=== PATIENT | male | born 1960 | race Native Hawaiian/Other Pacific Islander ===

== ENCOUNTER 2016-09-15 13:57 | Outpatient (CLI) | payer BC | END 2016-09-15 19:11 | disposition home or self-care (01) | LOC: US 13:57 | DX: N50.89 Other specified disorders of the male genital organs (principal) ==

== ENCOUNTER 2022-02-26 10:39 | Outpatient (CLI) | payer OTHER | END 2022-02-26 19:03 | disposition home or self-care (01) | LOC: RAD 10:39 | PROVIDERS: ATTEND Physician Assistant | DX: M54.2 Cervicalgia (principal) ==

== ENCOUNTER 2022-03-16 14:25 | Outpatient (CLI) | payer OTHER | END 2022-03-16 18:59 | disposition home or self-care (01) | LOC: MRI 14:25 | PROVIDERS: ATTEND Physician Assistant | DX: M54.12 Radiculopathy, cervical region (principal) ==